=== PATIENT | male | born 1960 | race Caucasian/White ===

== ENCOUNTER → 2020-02-18 | Outpatient (CLI) | payer BC, OTHER ==
[~2020-02-18] MED LIST: HYDR12.517 PO; LISI40TA PO; LOVA40TA2 PO
[2020-02-18 09:48] LABS: BASOPHILS % (AUTO) 1 % (0-1); EOSINOPHILS % (AUTO) 2 % (1-7); LYMPHOCYTES % (AUTO) 22 % (22-44); MEAN CORPUSCULAR HEMOGLOBIN 30.8 pg (27.5-34.5); MEAN CORPUSCULAR HGB CONC 34.4 g/dL (33.2-36.2); MEAN PLATELET VOLUME 7.6 fL (7.4-10.4); MONOCYTES % (AUTO) 11 % (2-9); NEUTROPHILS % (AUTO) 64 % (42-75); PLATELET COUNT 272 x10^3/uL (130-400); RED BLOOD COUNT 4.81 x10^6/uL (4.38-5.82); RED CELL DISTRIBUTION WIDTH 13.6 % (9.4-14.8)
[2020-02-18 09:54] LABS: MD NO
[2020-02-18 09:56] LABS: INTERNATIONAL NORMALIZED RATIO 1.02 (0.93-1.1); PROTHROMBIN TIME 10.8 Seconds (9.6-11.5)
[2020-02-18 09:57] LABS: CHLORIDE 110 mmol/L (98-107)
[2020-02-18 10:04] LABS: ALANINE AMINOTRANSFERASE 33 U/L (12-78); ALBUMIN 3.8 g/dL (3.4-5.0); ALKALINE PHOSPHATASE 95 U/L (45-117); ANION GAP 6 mmol/L (5-15); BILIRUBIN,TOTAL 0.4 mg/dL (0.2-1.0); CALCIUM 9.3 mg/dL (8.5-10.1); CREATININE 1.35 mg/dL (0.7-1.3); TOTAL PROTEIN 8.1 g/dL (6.4-8.2)
[2020-02-18 10:05] LABS: MICROSCOPIC NOT IND
== END | disposition home or self-care (01) ==
LOC: STAR 08:09
PROVIDERS: ATTEND Neurological Surgery
DX: Z01.812 Encounter for preprocedural laboratory examination (principal); Z20.828 Contact with and (suspected) exposure to other viral communicable diseases; M47.22 Other spondylosis with radiculopathy, cervical region
CPT/HCPCS: 71046; 80053; 81003; 85025; 85610; 85730; 87635; 93005

== ENCOUNTER 2020-02-24 06:09 | Day surgery (SDC) | payer BC, OTHER ==
[~2020-02-24] VITALS: Ht 177.8 cm; Wt 109.0 kg
[2020-02-24] MEDS ORDERED: EPINEPHRINE 1 MG/ML, 1ML ONE (06:36)
[2020-02-24] MEDS ORDERED: BUPIVACAINE/PF 0.5% ONE ×2 (06:36→08:53)
[2020-02-24] MEDS ORDERED: BACITRACIN 50,000 UNIT ONE (06:36)
[2020-02-24] MEDS ORDERED: THROMBIN 5,000 UNIT VIAL TP ONE (06:36)
[2020-02-24] MEDS ORDERED: VANCOMYCIN 1,000 MG ONE (06:36)
[2020-02-24] MEDS ORDERED: CHLORHEXIDINE 15 ML UDC MM STA (06:45)
[2020-02-24] MEDS ORDERED: CHLORHEXIDINE 15 ML UDC ONE (06:52)
[2020-02-24] MEDS ORDERED: LACTATED RINGERS 1,000 ML IV SCH (07:00)
[2020-02-24] MEDS ORDERED: MIDAZOLAM 1 MG/ML, 2ML ONE (07:33)
[2020-02-24] MEDS ORDERED: FENTANYL PF 250 MCG/5ML ONE (07:33)
[2020-02-24] MEDS ORDERED: PROPOFOL 10 MG/ML, 20ML ONE (08:21)
[2020-02-24] MEDS ORDERED: SUGAMMADEX 200 MG/2 ML IVPush ONE (08:21)
[2020-02-24] MEDS ORDERED: DEXAMETHASONE 4 MG/ML, 1ML ONE (08:21)
[2020-02-24] MEDS ORDERED: CEFAZOLIN 1,000 MG ONE (08:21)
[2020-02-24] MEDS ORDERED: KETOROLAC 30 MG/1 ML ONE (08:21)
[2020-02-24] MEDS ORDERED: ONDANSETRON 2MG/ML, 2ML ONE (08:21)
[2020-02-24] MEDS ORDERED: ROCURONIUM 10 MG/ML,10ML ONE (08:21)
[2020-02-24] MEDS ORDERED: SUCCINYLCHOLINE 20 MG/ML, 10ML ONE (08:21)
[2020-02-24] MEDS ORDERED: LABETALOL 5MG/ML, 20ML IV PRN (09:00)
[2020-02-24] MEDS ORDERED: DIAZEPAM 5 MG/ML, 2ML IV PRN ×2 (09:00)
[2020-02-24] MEDS ORDERED: hydrALAzine 20 MG/ML, 1ML IV PRN (09:00)
[2020-02-24] MEDS ORDERED: PROMETHAZINE 25 MG/ML, 1ML IV PRN (09:00)
[2020-02-24] MEDS ORDERED: METOCLOPRAMIDE 5 MG/ML, 2ML IV PRN (09:00)
[2020-02-24] MEDS ORDERED: ALBUTEROL SULFATE 2.5 MG/3 ML NPPB PRN (09:00)
[2020-02-24] MEDS ORDERED: FENTANYL PF 100 MCG/2ML IV PRN (09:00)
[2020-02-24] MEDS ORDERED: MEPERIDINE/PF 25MG/0.5ML IVPush PRN (09:00)
[2020-02-24] MEDS ORDERED: OXYcodone 5 MG/5 ML ORAL.SOL UDC PO PRN (09:00)
[2020-02-24] MEDS ORDERED: HYDROmorphone 1 MG/ML, 1ML INJ IV PRN (09:00)
[2020-02-24] MEDS ORDERED: KETOROLAC 30 MG/1 ML IV PRN (09:00)
[2020-02-24] MEDS ORDERED: ONDANSETRON 2MG/ML, 2ML IVPush PRN (09:00)
[2020-02-24] MEDS ORDERED: TIZA4TAB2 PO (10:35)
[2020-02-24] MEDS ORDERED: OXYC-302 PO (10:35)
[2020-02-24] MEDS ORDERED: OXYcodone 5 MG/5 ML ORAL.SOL UDC ONE (10:39)
== END 2020-02-24 13:10 | disposition home or self-care (01) ==
LOC: OUT 06:09
PROVIDERS: ATTEND Neurological Surgery
DX: M48.02 Spinal stenosis, cervical region (principal); M50.123 Cervical disc disorder at C6-C7 level with radiculopathy; I10 Essential (primary) hypertension; G47.33 Obstructive sleep apnea (adult) (pediatric); E66.9 Obesity, unspecified; Z68.33 Body mass index [BMI] 33.0-33.9, adult; Z79.82 Long term (current) use of aspirin; Z79.899 Other long term (current) drug therapy; Z82.61 Family history of arthritis; Z82.49 Family history of ischemic heart disease and other diseases of the circulatory system
CPT/HCPCS: 63020; 72040; J0171; J0330; J0690; J1100; J1885; J2250; J2405; J2704; J3010; J7120; J3370